=== PATIENT | female | born 1970 | race Two or more races ===

== ENCOUNTER 2019-04-27 16:38 | Emergency (ER) | payer OTHER ==
[~2019-04-27] VITALS: Ht 154.9 cm; Wt 84.4 kg
[2019-04-27 16:56] VITALS: BP 149/71
[2019-04-27] MEDS ORDERED: KETOROLAC TROMETH 60MG/2ML VIAL IM ONE (18:45)
== END 2019-04-27 20:37 | disposition home or self-care (01) ==
LOC: ER 16:44
DX: M54.5 Low back pain (principal); M62.838 Other muscle spasm; Z88.2 Allergy status to sulfonamides; Z91.040 Latex allergy status; V43.52XA Car driver injured in collision with other type car in traffic accident, initial encounter; Y93.89 Activity, other specified; Y92.410 Unspecified street and highway as the place of occurrence of the external cause; Y99.8 Other external cause status
CPT/HCPCS: 72100; 96372; 99283; J1885

== ENCOUNTER 2021-08-13 03:47 | Emergency (ER) | payer MEDICAID, OTHER ==
[~2021-08-13] VITALS: Ht 154.9 cm; Wt 87.1 kg
[2021-08-13 03:48] VITALS: BP 145/71
[2021-08-13] MEDS ORDERED: cefTRIAXone SOD 1,000 MG VL IM ONE (06:45)
[2021-08-13] MEDS ORDERED: IBUPROFEN 800 MG TAB PO ONE (06:45)
[2021-08-13] MEDS ORDERED: CLIN300C8 PO (06:49)
[2021-08-13] MEDS ORDERED: IBUP800T27 PO (06:49)
== END 2021-08-13 07:01 | disposition home or self-care (01) ==
LOC: ER 03:47
DX: K04.7 Periapical abscess without sinus (principal); Z88.2 Allergy status to sulfonamides; Z91.040 Latex allergy status
CPT/HCPCS: 96372; 99283; J0696

== ENCOUNTER 2021-12-17 04:47 | Inpatient (IN) | payer MEDICAID ==
[~2021-12-17] VITALS: Ht 154.9 cm; Wt 89.6 kg
[~2021-12-17 04:47] MED LIST: CLIN300C8 PO; IBUP800T27 PO
[2021-12-17 06:00] LABS: Basophils # (auto) 0 10 ^3/uL (0-0.2); Basophils % (auto) 0.5 % (0.0-2.0); Eosinophils # (auto) 0 10 ^3/uL (0-0.8); Hematocrit 49.2 % (36.0-46.0); Hemoglobin 16.3 g/dL (12.2-16.2); Lymphocytes # (auto) 0.9 10 ^3/uL (0.4-5.4); Lymphocytes % (auto) 12.3 % (10.0-50.0); Mean Corpuscular Hemoglobin 28.5 pg (28.0-32.0); Mean Corpuscular Hgb Conc. 33.1 g/dL (32.0-36.0); Mean Corpuscular Volume 86.1 fL (80.0-100.0); Monocytes # (auto) 0.8 10 ^3/uL (0-1.3); Monocytes % (auto) 10.8 % (0.0-12.0); Neutrophils # (auto) 5.7 10 ^3/uL (1.6-8.6); Neutrophils % (auto) 76.4 % (37.0-80.0); Nucleated Red Blood Cells % 0.3 %; Red Blood Cells 5.71 10^6/uL (4.0-5.20); Red Cell Distribution Width 13.7 % (11.8-14.3); White Blood Cell 7.5 10^3/uL (4.4-10.8)
[2021-12-17 06:19] LABS: Albumin 3.7 g/dL (3.4-5.0); BUN/Creatinine Ratio 17.4; Calcium 8.6 mg/dL (8.5-10.1); Potassium 3.8 mmol/L (3.5-5.1)
[2021-12-17 06:26] LABS: Bilirubin, Total 0.8 mg/dL (0.2-1.0); Total Protein 7.2 g/dL (6.4-8.2)
[2021-12-17] MEDS ORDERED: AZITHROMYCIN 500MG/ 250ML 250 ML IV ONE (07:45)
[2021-12-17] MEDS ORDERED: ZINC SULFATE 220mg CAP or TAB PO ONE (07:45)
[2021-12-17] MEDS ORDERED: CHOLECALCIFEROL (VITD3) 2,000 UNIT CAP/TAB PO ONE (07:45)
[2021-12-17] MEDS ORDERED: ASCORBIC ACID 500 MG TAB PO ONE (07:45)
[2021-12-17] MEDS ORDERED: SPIRONOLACTONE 25 MG TAB PO ONE (13:00)
[2021-12-17] MEDS ORDERED: FUROSEMIDE 20 MG/2 ML VIAL IV ONE (13:00)
[2021-12-17] MEDS ORDERED: ONDANSETRON HCL 4 MG/2 ML VIAL IV PRN (14:30)
[2021-12-17] MEDS ORDERED: HYDROcodone-ACET 5/325MG TAB PO PRN (14:30)
[2021-12-17] MEDS ORDERED: DOCUSATE SOD 100 MG CAP PO PRN (14:30)
[2021-12-17] MEDS ORDERED: MORPHINE SULFATE INJ 2 MG/ml SYRG IV PRN (14:30)
[2021-12-17] MEDS ORDERED: ACETAMINOPHEN 325 MG TAB PO PRN (14:30)
[2021-12-17 15:16] VITALS: BP 101/41
[2021-12-17 22:00] VITALS: BP 113/64
[2021-12-17] MEDS: ENOXAPARIN SOD 60 MG/0.6 ML SYRINGE SC SCH (22:13)
[2021-12-17] MEDS: BUDESONIDE (INHALATION) 180 MCG IH IN SCH (22:32)
[2021-12-17] MEDS: ALBUTEROL SULF HFA 90MCG INH 200DOSE IN PRN (22:32)
[2021-12-17 22:55] VITALS: BP 113/64
[2021-12-17 22:56] VITALS: BP 113/64
[2021-12-18 04:35] VITALS: BP 100/48
[2021-12-18 06:13] LABS: Basophils # (auto) 0 10 ^3/uL (0-0.2); Basophils % (auto) 0.3 % (0.0-2.0); Eosinophils # (auto) 0 10 ^3/uL (0-0.8); Hematocrit 45.1 % (36.0-46.0); Hemoglobin 14.9 g/dL (12.2-16.2); Lymphocytes # (auto) 1.1 10 ^3/uL (0.4-5.4); Lymphocytes % (auto) 21.7 % (10.0-50.0); Mean Corpuscular Hemoglobin 28.9 pg (28.0-32.0); Mean Corpuscular Volume 87.4 fL (80.0-100.0); Monocytes # (auto) 0.8 10 ^3/uL (0-1.3); Monocytes % (auto) 15.4 % (0.0-12.0); Neutrophils # (auto) 3.3 10 ^3/uL (1.6-8.6); Neutrophils % (auto) 62.6 % (37.0-80.0); Nucleated Red Blood Cells % 0.1 %; Red Blood Cells 5.16 10^6/uL (4.0-5.20); Red Cell Distribution Width 13.7 % (11.8-14.3); White Blood Cell 5.3 10^3/uL (4.4-10.8)
[2021-12-18 06:34] LABS: Albumin 3.2 g/dL (3.4-5.0); BUN/Creatinine Ratio 18.2; Calcium 8.5 mg/dL (8.5-10.1); Potassium 3.5 mmol/L (3.5-5.1)
[2021-12-18 06:37] LABS: Bilirubin, Total 0.7 mg/dL (0.2-1.0); Total Protein 6.3 g/dL (6.4-8.2)
[2021-12-18 08:00] VITALS: BP 102/48
[2021-12-18 09:00] VITALS: BP 102/48
[2021-12-18] MEDS: DexAMETHasone SOD PHOS 10MG/1ML VIAL INJ IV SCH (09:36)
[2021-12-18] MEDS: AZITHROMYCIN 500MG/ 250ML 250 ML IV SCH (09:37)
[2021-12-18] MEDS: ENOXAPARIN SOD 60 MG/0.6 ML SYRINGE SC SCH ×2 (09:38→21:31)
[2021-12-18] MEDS: CHOLECALCIFEROL (VITD3) 2,000 UNIT CAP/TAB PO SCH (09:38)
[2021-12-18] MEDS: ASCORBIC ACID 1,000 MG TAB PO SCH (09:39)
[2021-12-18] MEDS: ZINC SULFATE 220mg CAP or TAB PO SCH (09:39)
[2021-12-18 13:00] VITALS: BP 107/43
[2021-12-18] MEDS: BUDESONIDE (INHALATION) 180 MCG IH IN SCH ×2 (14:34→19:01)
[2021-12-18] MEDS: ALBUTEROL SULF HFA 90MCG INH 200DOSE IN PRN ×2 (14:34→19:01)
[2021-12-18 17:00] VITALS: BP 133/71
[2021-12-18] MEDS ORDERED: REMDESIVIR PER PHARMACY 0 ML IV SCH (21:00)
[2021-12-18] MEDS ORDERED: FUROSEMIDE 20 MG/2 ML VIAL IV ONE (21:00)
[2021-12-18] MEDS ORDERED: REMDESIVIR 200 MG in NS 210ml LOADING DOSE ADULT IV ONE (21:30)
[2021-12-18 22:00] VITALS: BP 137/55
[2021-12-19 05:00] VITALS: BP 112/70
[2021-12-19 05:29] LABS: Potassium 3.4 mmol/L (3.5-5.1)
[2021-12-19 05:39] LABS: Albumin 3.3 g/dL (3.4-5.0); BUN/Creatinine Ratio 19.8; Bilirubin, Total 0.5 mg/dL (0.2-1.0); Calcium 8.3 mg/dL (8.5-10.1); Total Protein 6.6 g/dL (6.4-8.2)
[2021-12-19 09:00] VITALS: BP 138/72
[2021-12-19] MEDS: DexAMETHasone SOD PHOS 10MG/1ML VIAL INJ IV SCH (10:15)
[2021-12-19] MEDS: FUROSEMIDE 20 MG/2 ML VIAL IV SCH (10:16)
[2021-12-19] MEDS: AZITHROMYCIN 500MG/ 250ML 250 ML IV SCH (10:17)
[2021-12-19] MEDS: ASCORBIC ACID 1,000 MG TAB PO SCH (10:17)
[2021-12-19] MEDS: ZINC SULFATE 220mg CAP or TAB PO SCH (10:17)
[2021-12-19] MEDS: CHOLECALCIFEROL (VITD3) 2,000 UNIT CAP/TAB PO SCH (10:18)
[2021-12-19] MEDS: ENOXAPARIN SOD 60 MG/0.6 ML SYRINGE SC SCH ×2 (10:18→21:48)
[2021-12-19] MEDS: BUDESONIDE (INHALATION) 180 MCG IH IN SCH ×2 (10:52→19:33)
[2021-12-19] MEDS: ALBUTEROL SULF HFA 90MCG INH 200DOSE IN PRN ×2 (10:52→19:33)
[2021-12-19 13:34] VITALS: BP 99/61
[2021-12-19] MEDS: REMDESIVIR 100mg 100 MG in SODIUM CHL 0.9% 230 ML IV SCH (15:25)
[2021-12-19 17:00] VITALS: BP 133/73
[2021-12-19 22:00] VITALS: BP_SYST 124; BP_SYST 151; BP_DIAS 71; BP_DIAS 76
[2021-12-20 05:00] VITALS: BP 126/59
[2021-12-20] MEDS: BUDESONIDE (INHALATION) 180 MCG IH IN SCH ×2 (07:54→22:00)
[2021-12-20] MEDS: ALBUTEROL SULF HFA 90MCG INH 200DOSE IN PRN ×2 (07:54→23:17)
[2021-12-20 09:00] VITALS: BP 102/67
[2021-12-20] MEDS: DexAMETHasone SOD PHOS 10MG/1ML VIAL INJ IV SCH (11:18)
[2021-12-20] MEDS: AZITHROMYCIN 500MG/ 250ML 250 ML IV SCH (11:18)
[2021-12-20] MEDS: ENOXAPARIN SOD 60 MG/0.6 ML SYRINGE SC SCH (11:19)
[2021-12-20] MEDS: CHOLECALCIFEROL (VITD3) 2,000 UNIT CAP/TAB PO SCH (11:19)
[2021-12-20] MEDS: FUROSEMIDE 20 MG/2 ML VIAL IV SCH (11:20)
[2021-12-20 12:06] LABS: Albumin 3.2 g/dL (3.4-5.0); BUN/Creatinine Ratio 32.2; Calcium 8.7 mg/dL (8.5-10.1); Potassium 3.2 mmol/L (3.5-5.1)
[2021-12-20 12:09] LABS: Bilirubin, Total 0.4 mg/dL (0.2-1.0); Total Protein 6.8 g/dL (6.4-8.2)
[2021-12-20 13:00] VITALS: BP 104/66
[2021-12-20] MEDS: REMDESIVIR 100mg 100 MG in SODIUM CHL 0.9% 230 ML IV SCH (15:40)
[2021-12-20 17:00] VITALS: BP 118/79
[2021-12-20 22:00] VITALS: BP 123/55
[2021-12-20] MEDS: ENOXAPARIN SOD 40 MG/0.4 ML SYRINGE SC SCH (22:25)
[2021-12-21 05:00] VITALS: BP 105/55
[2021-12-21] MEDS: BUDESONIDE (INHALATION) 180 MCG IH IN SCH ×2 (07:15→22:32)
[2021-12-21] MEDS: ALBUTEROL SULF HFA 90MCG INH 200DOSE IN PRN ×2 (07:16→22:32)
[2021-12-21 09:00] VITALS: BP 104/50
[2021-12-21] MEDS: ENOXAPARIN SOD 40 MG/0.4 ML SYRINGE SC SCH ×2 (09:48→21:41)
[2021-12-21] MEDS: CHOLECALCIFEROL (VITD3) 2,000 UNIT CAP/TAB PO SCH (09:48)
[2021-12-21] MEDS: DexAMETHasone SOD PHOS 10MG/1ML VIAL INJ IV SCH (09:48)
[2021-12-21] MEDS: FUROSEMIDE 20 MG/2 ML VIAL IV SCH (09:48)
[2021-12-21 13:00] VITALS: BP 113/64
[2021-12-21] MEDS: REMDESIVIR 100mg 100 MG in SODIUM CHL 0.9% 230 ML IV SCH (15:35)
[2021-12-21 17:00] VITALS: BP 107/57
[2021-12-21 22:00] VITALS: BP 139/57
[2021-12-22 05:00] VITALS: BP 119/65
[2021-12-22 08:30] VITALS: BP 113/53
[2021-12-22] MEDS: ALBUTEROL SULF HFA 90MCG INH 200DOSE IN PRN (09:55)
[2021-12-22] MEDS: BUDESONIDE (INHALATION) 180 MCG IH IN SCH (09:55)
[2021-12-22] MEDS: FUROSEMIDE 20 MG/2 ML VIAL IV SCH (10:32)
[2021-12-22] MEDS: ENOXAPARIN SOD 40 MG/0.4 ML SYRINGE SC SCH (10:32)
[2021-12-22] MEDS: DexAMETHasone SOD PHOS 10MG/1ML VIAL INJ IV SCH (10:33)
[2021-12-22] MEDS: CHOLECALCIFEROL (VITD3) 2,000 UNIT CAP/TAB PO SCH (10:33)
[2021-12-22 11:22] LABS: Albumin 2.9 g/dL (3.4-5.0); Calcium 8.5 mg/dL (8.5-10.1); Potassium 3.3 mmol/L (3.5-5.1)
[2021-12-22] MEDS ORDERED: ALBUAER3 IN (11:25)
[2021-12-22] MEDS ORDERED: CHOL1CAP47 PO (11:25)
[2021-12-22 11:26] LABS: BUN/Creatinine Ratio 26.4; Bilirubin, Total 0.6 mg/dL (0.2-1.0); Total Protein 6.4 g/dL (6.4-8.2)
[2021-12-22] MEDS ORDERED: ASPI-378 PO (11:26)
[2021-12-22] MEDS ORDERED: PRED10TA PO (11:27)
[2021-12-22 12:30] VITALS: BP 111/68
[2021-12-22] MEDS: REMDESIVIR 100mg 100 MG in SODIUM CHL 0.9% 230 ML IV SCH (15:45)
[2021-12-22 17:00] VITALS: BP 111/63
== END 2021-12-22 18:20 | disposition home or self-care (01) | DRG 137 ==
LOC: ER 04:47 → TELE 14:21 → TELE-EAST 21:25
PROVIDERS: ADMIT Internal Medicine; ATTEND Internal Medicine Nephrology
PROC: XW033E5 Introduction of Remdesivir Anti-infective into Peripheral Vein, Percutaneous Approach, New Technology Group 5 (ICD-10-PCS; principal; 2021-12-17)
DX: U07.1 COVID-19 (principal); J96.01 Acute respiratory failure with hypoxia; J12.82 Pneumonia due to coronavirus disease 2019; E66.9 Obesity, unspecified; K76.0 Fatty (change of) liver, not elsewhere classified; Z68.37 Body mass index [BMI] 37.0-37.9, adult
CPT/HCPCS: 36415; 36600; 71045; 80053; 82805; 83615; 84439; 84443; 84484; 85025; 86141; 93005; 93970; 94640; 96365; 96366; 96375; G0378; J1100